=== PATIENT | female | born 1965 | race Caucasian/White ===

== ENCOUNTER → 2016-09-11 | Outpatient (CLI) | payer BC ==
[~2016-09-11] MED LIST: FLUT0.15 NAE; LEVO50TA PO; NARA1TAB PO
--- NOTE | 2016-09-11 16:39 | MAMMOGRAPHY REPORT ---
BILATERAL DIGITAL DIAGNOSTIC MAMMOGRAM TOMOSYNTHESIS WITH CAD: 09/11/2016 CLINICAL HISTORY: 50-year-old woman presents for second close follow-up of an asymmetry in the far s uperior left breast on the MLO view. Annual bilateral screening mammography. TECHNIQUE: Bilateral CC and MLO 2-D digital and tomosynthesis images, left ML tomosynthesis images w ere obtained. Current study was also evaluated with a Computer Aided Detection (CAD) system. COMPARISON: Comparison is made to exams dated: 03/13/2016 ultrasound, 03/13/2016 mammogram, 08/26/2015 mammogram, 08/18/2015 mammogram, and 02/06/2013 ultrasound - [facility]. BREAST COMPOSITION: The tissue of both breasts is heterogeneously dense, which may obscure small ma sses. FINDINGS: An 11 x 6 mm nodular asymmetry in the superior left breast on the MLO view appears identic al to the 03/13/2016 mammogram and the asymmetry is less prominent comparing to the 08/18/2015 mammo gram, although there are slight differences in position. There is no associated architectural disto rtion or definite mass on the corresponding tomosynthesis images. No associated microcalcification. No other suspicious mass, architectural distortion, developing asymmetry or suspicious calcificati ons are seen bilaterally. Given the stability to decrease prominence of the asymmetry this most lik katie represents benign glandular tissue. However, given that it is increased in prominence comparing to the more remote 199903/06/2013 mammograms, another 12 month follow-up is recommended to ensure at least 2 years of stability to confirm benignity. IMPRESSION: ACR-BI-RADS CATEGORY 3: PROBABLY BENIGN The asymmetry in the superior left breast on the MLO view has not significantly changed in one year and most likely represent benign glandular tissue, as there is no corresponding mass or architectura l distortion on the tomosynthesis images. However, another 12 month follow-up diagnostic mammogram and possible repeat ultrasound is recommend to ensure at least 2 years of stability to confirm benlc nitblanca. These results and recommendations were discussed with the patient at the time of the exam. Approximately 10% of breast cancers are not detected with mammography. A negative mammographic repor t should not delay biopsy if a clinically suggestive mass is present. Priscilla Monae M.D. ay/:09/11/2016 15:02:20 Oil Scout: Maryellen Harrington, [facility] letter sent: Follow Up Recommended 3 BI-RADS Code: ACR-BI-RADS Category 3: Probably Benign
== END | disposition home or self-care (01) ==
LOC: C.MAMM 14:20
PROVIDERS: ATTEND Internal Medicine
DX: N64.89 Other specified disorders of breast (principal)

== ENCOUNTER → 2017-03-15 | Outpatient (CLI) | payer BC | END | disposition home or self-care (01) | LOC: C.PAPS 09:57 | PROVIDERS: ATTEND Obstetrics & Gynecology | DX: Z01.419 Encounter for gynecological examination (general) (routine) without abnormal findings (principal) ==

== ENCOUNTER → 2017-03-15 | Outpatient (CLI) | payer BC | END | disposition home or self-care (01) | LOC: C.LABSPEC 16:58 | PROVIDERS: ATTEND Obstetrics & Gynecology | DX: B37.3 Candidiasis of vulva and vagina (principal) ==

== ENCOUNTER → 2017-09-16 | Outpatient (CLI) | payer BC ==
--- NOTE | 2017-09-17 07:47 | MAMMOGRAPHY REPORT ---
BILATERAL DIGITAL DIAGNOSTIC MAMMOGRAM TOMOSYNTHESIS WITH CAD: 09/16/2017 CLINICAL HISTORY: 51-year-old woman presents at time of annual bilateral screening mammogram and also close follow-up of an asymmetry in the far superior left breast on the MLO view. TECHNIQUE: Bilateral breast tomosynthesis in addition to standard 2D mammography was performed. Curre nt study was also evaluated with a Computer Aided Detection (CAD) system. COMPARISON: Comparison is made to exams dated: 09/11/2016 mammogram, 03/13/2016 ultrasound, 03/13/2016 mammogram, 08/26/2015 ultrasound, 08/26/2015 mammogram, and 08/18/2015 mammogram - [facility]. BREAST COMPOSITION: The tissue of both breasts is heterogeneously dense, which may obscure small mas ses. FINDINGS: The previously observed asymmetry in the far superior left breast on the MLO view is less p rominent comparing to th eprior 2016 and 2015 mammograms, confirming benignity. Currently, it has th e appearance of normal fibroglandular tissue on the tomosynthesis images. No suspicious mass, ilia ectural distortion or cluster of microcalcifications is seen bilaterally. IMPRESSION: ACR BI-RADS CATEGORY 2: BENIGN Less prominent asymmetry in the far superior left breast on the MLO view, confirming benignity. Ther e is no mammographic evidence of malignancy in the breasts. A 1 year screening mammogram is recommend ed. The patient has been verbally notified of the results. Approximately 10% of breast cancers are not detected with mammography. A negative mammographic report should not delay biopsy if a clinically suggestive mass is present. Priscilla Monae M.D. ay/:09/16/2017 14:41:32 Delivery Crew Worker: Maryellen BARRY(Summer)(M), [facility] letter sent: Normal 1/2 BI-RADS Code: ACR BI-RADS Category 2: Benign
== END | disposition home or self-care (01) ==
LOC: C.MAMM 14:01
PROVIDERS: ATTEND Internal Medicine
DX: Z09 Encounter for follow-up examination after completed treatment for conditions other than malignant neoplasm (principal); N64.89 Other specified disorders of breast